=== PATIENT | female | born 1970 | race Caucasian/White ===

== ENCOUNTER → 2018-03-26 | Day surgery (SDC) | payer OTHER ==
[~2018-03-26] MED LIST: IV RINGERS,LACTATED 1000ML 1,000 ML IV SCH; LEVO100T5 PO; LIDOCAINE 1% PF 2 ML VIAL. ID PRN; MAGN400T3 PO; MIDAZOLAM HCL/PF 2 MG/2 ML VIAL. IV PRN; PROPOFOL 40 ML IV ONE; fentaNYL PF VIAL 100 MCG/2 ML VIAL IV PRN
[2018-03-26 08:42] LABS: U PREG PATIENT NEGATIVE (NEG)
[2018-03-26 10:11] VITALS: BP 112/64
--- NOTE | 2018-03-26 20:25 | CONS ---
DATE OF CONSULTATION: 03/26/2018 REFERRING PROVIDER: REASON FOR CONSULTATION: Colorectal screening. HISTORY OF PRESENT ILLNESS: A 47-year-old female with past medical history significant for cholecystectomy, tonsillectomy, hypothyroidism, seen for a colon exam. Bowel habits are regular without diarrhea or constipation. There has been no melena, hematochezia. Weight and appetite are stable and she is otherwise without additional complaints. FAMILY HISTORY: Unrevealing for colon cancer. PAST MEDICAL HISTORY: Hypothyroidism, status post cholecystectomy, tonsillectomy. ALLERGIES: None. MEDICATIONS: Include levothyroxine and magnesium. FAMILY AND SOCIAL HISTORY: Nonsmoker and social drinker. REVIEW OF SYSTEMS: HEENT: There is no decrease in her visual acuity issues. CARDIAC: No history of hypertension, palpitations, syncope. PULMONARY: No shortness breath, productive cough, or asthma. RENAL: No dysuria, frequency, hematuria. NEUROLOGIC: No stroke, no migraine. PSYCHIATRIC: No mood swings, depression, insomnia. ENDOCRINE: History of hypothyroidism. GASTROINTESTINAL: See history of present illness. HEMATOLOGIC: No bleeding, bruising, coagulopathy. DERMATOLOGIC: No skin rashes or pruritus. MUSCULOSKELETAL: No osteoarthrosis, arthralgias, myalgias. PHYSICAL EXAMINATION: GENERAL: A well-nourished, well-developed female, alert, cooperative, in no acute distress. VITAL SIGNS: Pulse 75, respiratory rate 18. HEENT: Normocephalic, atraumatic. Pupils and extraocular muscles are not tested. Sclerae anicteric. NECK: Supple. LUNGS: Clear. CARDIOVASCULAR: Reveals an S1, S2 without S3, S4 or appreciable murmur. ABDOMEN: Soft abdomen, normal bowel sounds without appreciable hepatosplenomegaly. EXTREMITIES: Reveals no cyanosis, clubbing, edema. IMPRESSION: Colorectal screening is warranted at this time. Risks and benefits of procedure including risk of hemorrhage or perforation have been discussed with the patient who is willing to proceed at this time. GWEN ARMENTA MD DR: HARRIETT/cory JOB#: [id number] / [id number] ecc ,
--- NOTE | 2018-03-27 14:13 | PATHOLOGY ---
[facility] Accession Number: [id number] . 01 Material submitted: . BIOPSY RECTAL POLYP . 01 Clinical history: . Screening . 02 Diagnosis: Colorectal biopsy, rectal polyp: - Consistent with hyperplastic polyp /prominent fold, with mucosal- associated lymphoid aggregate. (JPM:carlton; 03/27/2018) QMS/03/27/2018 . 02 Comment: There are no adenomatous changes or evidence of malignancy. . 02 Electronically signed: . Eyad Chawla MD, Pathologist NPI- [id number] . 01 Gross description: . Received in formalin labeled "Duran Reyna, BX rectal polyp," is a single segment of zhao soft tissue measuring 0.3 cm in maximum dimension. The specimen is entirely submitted in cassette A1. (TSD; 03/26/2018) TOB/TOB . 02 Pathologist provided ICD-10: Z12.11 . 02 CPT . 985182 Specimen Comment: A courtesy copy of this report has been sent to Specimen Comment: [phone]. Specimen Comment: Report sent to Performed at: [facility] [address] [facility] [address], [place] [id number] MD Suresh Rajan MD Phone: [phone] Performed at: 02 [facility] [address] [place], [place] [id number] MD Eyad Chawla MD Phone: [phone]
== END | disposition home or self-care (01) ==
LOC: SURG 08:10
PROVIDERS: ATTEND Internal Medicine Gastroenterology
DX: Z12.11 Encounter for screening for malignant neoplasm of colon (principal); K62.1 Rectal polyp; K64.0 First degree hemorrhoids; E03.9 Hypothyroidism, unspecified; Z90.49 Acquired absence of other specified parts of digestive tract; Z98.890 Other specified postprocedural states; Z79.899 Other long term (current) drug therapy; Z72.89 Other problems related to lifestyle
CPT/HCPCS: 45380; 81025; 88305; J2704

== ENCOUNTER → 2018-04-29 | Outpatient (CLI) | payer OTHER ==
[2018-03-26 10:11] VITALS: BP 112/64
[~2018-04-29] MED LIST changes: -IV RINGERS,LACTATED 1000ML 1,000 ML IV SCH; -LIDOCAINE 1% PF 2 ML VIAL. ID PRN; -MIDAZOLAM HCL/PF 2 MG/2 ML VIAL. IV PRN; -PROPOFOL 40 ML IV ONE; -fentaNYL PF VIAL 100 MCG/2 ML VIAL IV PRN
--- NOTE | 2018-04-29 14:46 | KCIC ---
MR of the left shoulder Indication: Chronic left posterior shoulder pain. Pain for 1.5 years.. Comparison: None are available. Technique: Standard multiplanar sequences are obtained. Findings: Artifact: Mild motion degradation, exam is diagnostic. Acromioclavicular joint: Mildly degenerative. Rotator cuff: * Supraspinatus-infraspinatus tendon: Intact * Subscapularis tendon: Intact * Muscle bulk: Within normal limits * Subacromial subdeltoid bursa: No significant effusion. Fluid: No significant glenohumeral effusion. Glenohumeral cartilage: No acute defect or advanced DJD. Labrum: No evidence of labral detachment. Defect at the anterosuperior labrum with a thick cordlike middle glenohumeral ligament compatible with a normal variant, a Randolph complex. Biceps tendon: Intact Bones: No lesion or acute fracture. Soft tissue: No acute findings.. Impression: No evidence of rotator cuff tear or acute abnormality. Electronically signed by: Roel Gomes MD (04/29/2018 2:43 PM) [id number]
== END | disposition home or self-care (01) ==
LOC: KCIC MRI 13:02
PROVIDERS: ATTEND Family Medicine
DX: M19.012 Primary osteoarthritis, left shoulder (principal)
CPT/HCPCS: 73221